=== PATIENT | female | born 1955 | race Caucasian/White ===

== ENCOUNTER 2023-04-10 21:27 | Emergency (ER) | payer MEDICARE, OTHER ==
[~2023-04-10] VITALS: Ht 170.2 cm; Wt 76.4 kg
[~2023-04-10 21:27] MED LIST: ASPI81TA53 PO; ATOR80TA PO; BUME1TAB8 PO; CLOP75TA34 PO; LOP12.5T PO; MELA5CAP PO; PRED10TA PO
[2023-04-10 22:20] LABS: BASOPHILS % (AUTO) 0.2 % (0-1); EOSINOPHILS # (AUTO) 0.1 X10'3 (0-0.9); EOSINOPHILS % (AUTO) 0.9 % (0-6); HEMATOCRIT 31.2 % (35.0-45.0); LYMPHOCYTES # (AUTO) 1.5 X10'3 (1.1-4.8); LYMPHOCYTES % (AUTO) 11.7 % (21-51); MEAN CORPUSCULAR HEMOGLOBIN 26.5 PG (27.0-31.0); MEAN CORPUSCULAR VOLUME 82.8 FL (78-98); MEAN PLATELET VOLUME 7.5 FL (7.4-10.4); MONOCYTES # (AUTO) 0.7 X10'3 (0-0.9); MONOCYTES % (AUTO) 5.6 % (2-12); NEUTROPHILS # (AUTO) 10.4 X10'3 (1.8-7.7); NEUTROPHILS % (AUTO) 81.6 % (42-75); PLATELET COUNT 326 X10'3 (140-440); RED BLOOD COUNT 3.77 X10'6 (4.20-5.60); RED CELL DISTRIBUTION WIDTH 16.2 % (11.5-14.5); WHITE BLOOD COUNT 12.7 X10'3 (4.5-11.0)
[2023-04-10 22:50] LABS: ALANINE AMINOTRANSFERASE 15 U/L (12-78); ALBUMIN 2.8 G/DL (3.4-5.0); ALBUMIN/GLOBULIN RATIO 0.7 (1.1-1.5); ALKALINE PHOSPHATASE 106 IU/L (46-116); ANION GAP 7 (8-16); ASPARTATE AMINO TRANSFERASE 12 U/L (10-37); BILIRUBIN,TOTAL 0.3 MG/DL (0.1-1.0); BLOOD UREA NITROGEN 17 MG/DL (7-18); CALCIUM 9.2 MG/DL (8.5-10.1); CHLORIDE 104 MMOL/L (99-107); GLUCOSE 121 MG/DL (70-104); LIPASE < 50 U/L (73-393); POTASSIUM 4.6 MMOL/L (3.5-5.1); SODIUM 140 MMOL/L (135-145); TOTAL CARBON DIOXIDE 28.6 MMOL/L (24-32); eGFR 55 ML/MIN
[2023-04-10] MEDS ORDERED: orphenadrine citrate 60mg/2ml inj. IM ONE (23:25)
[2023-04-10] MEDS ORDERED: HYDROcodone/acetaminophen 10/325mg tab PO ONE (23:25)
[2023-04-10] MEDS ORDERED: acetaminophen 325mg tablet PO ONE (23:25)
[2023-04-10] MEDS ORDERED: ketorolac trometh inj. 60 MG/2 ML VIAL IM ONE (23:25)
[2023-04-10 23:33] LABS: CLARITY,URINE SLIGHTLY CLOUDY (Clear); COLOR,URINE YELLOW (Yellow); GLUCOSE, URINE NEGATIVE (Neg); KETONES,URINE TRACE mg/dl (Neg); LEUKOCYTE ESTERASE ,URINE NEGATIVE (Neg); NITRITES, URINE NEGATIVE (Neg); OCCULT BLOOD,URINE NEGATIVE (Neg); PROTEIN,URINE NEGATIVE (Neg)
[2023-04-10 23:37] LABS: UA COLLECTION TYPE CLN CATCH MIDSTREAM
[2023-04-10 23:41] LABS: BACTERIA,URINE 2+ /HPF (Neg); MUCUS STRANDS MANY /LPF (Neg); RBC,URINE NONE SEEN /HPF (0-2); SQUAMOUS EPITHELIAL CELL,UR MANY /LPF (FEW); WBC,URINE 0-4 /HPF (0-4)
[2023-04-10] MEDS ORDERED: iohexol 350MG/ML 100ml bottle IV ONE (23:59)
[2023-04-11 05:15] VITALS: TEMP 98.7
[2023-04-11] MEDS ORDERED: esmolol/sodium cl bag 250 ML IV SCH (05:25)
[2023-04-11] MEDS ORDERED: nitroGLYCERIN-Tridil 50MG/D5W 250 ML IV SCH (06:00)
[2023-04-11] MEDS ORDERED: OMEP20CA16 PO (08:50)
[2023-04-11] MEDS ORDERED: ALB0.5UD INH (08:50)
[2023-04-11] MEDS ORDERED: AMLO5TAB16 PO (08:50)
[2023-04-11] MEDS ORDERED: DULO40CA2 PO (08:50)
[2023-04-11] MEDS ORDERED: PANT40TA54 PO (08:50)
[2023-04-11] MEDS ORDERED: APIX5TAB3 PO (08:50)
[2023-04-11] MEDS ORDERED: FLUT12AE21 INH (08:50)
[2023-04-11] MEDS ORDERED: ondansetron/PF 4mg/2ml inj IV ONE (10:45)
[2023-04-11] MEDS ORDERED: morphine 4 MG/ML inj SYRINge IV ONE (10:45)
--- NOTE | 2023-04-11 10:55 | NUR ---
CALLED [facility] FOR UPDATE ON TRANSFER. STILL NO UPDATE, AWAITING THE [facility] SURGEON TO OKAY THE TRANSFER.
[2023-04-11 11:41] LABS: BASOPHILS % (AUTO) 0.2 % (0-1); EOSINOPHILS # (AUTO) 0.1 X10'3 (0-0.9); EOSINOPHILS % (AUTO) 1.1 % (0-6); HEMATOCRIT 30.8 % (35.0-45.0); HEMOGLOBIN 9.9 g/dl (12.0-16.0); LYMPHOCYTES # (AUTO) 1.2 X10'3 (1.1-4.8); LYMPHOCYTES % (AUTO) 12.2 % (21-51); MEAN CORPUSCULAR HEMOGLOBIN 26.9 PG (27.0-31.0); MEAN CORPUSCULAR HGB CONC 32.1 g/dL (33.0-36.5); MEAN CORPUSCULAR VOLUME 83.8 FL (78-98); MEAN PLATELET VOLUME 7.3 FL (7.4-10.4); MONOCYTES # (AUTO) 0.7 X10'3 (0-0.9); MONOCYTES % (AUTO) 7.1 % (2-12); NEUTROPHILS # (AUTO) 7.5 X10'3 (1.8-7.7); NEUTROPHILS % (AUTO) 79.4 % (42-75); PLATELET COUNT 320 X10'3 (140-440); RED BLOOD COUNT 3.67 X10'6 (4.20-5.60); RED CELL DISTRIBUTION WIDTH 15.6 % (11.5-14.5); WHITE BLOOD COUNT 9.5 X10'3 (4.5-11.0)
--- NOTE | 2023-04-11 13:23 | NUR ---
CALLED [facility] FOR UPDATE, NO WORD FROM THE NIGHT VASC SURGEON, TRANSFER C[facility] PAGING DAY SURGEON.
--- NOTE | 2023-04-11 16:42 | NUR ---
DR YE AT BEDSIDE TO ASSESS THE PATIENT AT THIS TIME. DR YANG AT BEDSIDE.
[2023-04-11] MEDS ORDERED: cyclobenzaprine 10mg tablet PO ONE (16:55)
[2023-04-11] MEDS ORDERED: HYDROcodone/acetaminophen 10/325mg tab PO ONE (16:59)
[2023-04-11 18:00] VITALS: BP 107/50; PULSE 63; RESP 19; O2SAT 95
[2023-04-11] MEDS ORDERED: HYDR-3973 PO (18:23)
--- NOTE | 2023-04-11 19:05 | NUR ---
Patient son called to transport pt home. No answer, message left.
== END 2023-04-11 19:32 | disposition home or self-care (01) ==
LOC: ER 21:28
DX: I71.20 Thoracic aortic aneurysm, without rupture, unspecified (principal); M54.59 Other low back pain; Z88.8 Allergy status to other drugs, medicaments and biological substances; Z79.899 Other long term (current) drug therapy
CPT/HCPCS: 36415; 71275; 74174; 74176; 80053; 81001; 83690; 85025; 96365; 96372; 96375; 99291; 99292; J1885; J2270; J2360; J2405; J3490; Q9967; 99285

== ENCOUNTER 2023-12-01 15:33 | Inpatient (IN) | payer MEDICARE, MEDICAID ==
[~2023-12-01] VITALS: Ht 170.2 cm; Wt 91.0 kg
[~2023-12-01 15:33] MED LIST changes: +ALB0.5UD INH; +AMLO5TAB16 PO; +APIX5TAB3 PO; +DULO40CA2 PO; +FLUT12AE21 INH; +OMEP20CA16 PO; +PANT40TA54 PO
[2023-12-01 16:19] LABS: BASOPHILS % (AUTO) 0.2 % (0-1); EOSINOPHILS # (AUTO) 0.2 X10'3 (0-0.9); EOSINOPHILS % (AUTO) 1.2 % (0-6); HEMATOCRIT 37.3 % (35.0-45.0); HEMOGLOBIN 12.2 g/dl (12.0-16.0); LYMPHOCYTES # (AUTO) 2.5 X10'3 (1.1-4.8); LYMPHOCYTES % (AUTO) 18.6 % (21-51); MEAN CORPUSCULAR HEMOGLOBIN 27.2 PG (27.0-31.0); MEAN CORPUSCULAR HGB CONC 32.8 g/dL (33.0-36.5); MEAN CORPUSCULAR VOLUME 82.8 FL (78-98); MONOCYTES # (AUTO) 0.8 X10'3 (0-0.9); NEUTROPHILS # (AUTO) 9.8 X10'3 (1.8-7.7); PLATELET COUNT 287 X10'3 (140-440); RED BLOOD COUNT 4.51 X10'6 (4.20-5.60); RED CELL DISTRIBUTION WIDTH 15.6 % (11.5-14.5); WHITE BLOOD COUNT 13.2 X10'3 (4.5-11.0)
[2023-12-01] MEDS: normal saline 1000ML IV soln IV ONE (16:58)
[2023-12-01 17:01] VITALS: PULSE 73; RESP 12
[2023-12-01] MEDS: ipratropium/albuterol 3ml nebule NEB ONE (17:01)
[2023-12-01 17:06] LABS: ALBUMIN 3.2 G/DL (3.4-5.0); ANION GAP 11 (8-16); BLOOD UREA NITROGEN 17 MG/DL (7-18); BUN/CREATININE RATIO 17.9 (10.0-20.0); CALCIUM 9.1 MG/DL (8.5-10.1); CHLORIDE 105 MMOL/L (99-107); CREATININE 0.95 MG/DL (0.40-0.90); GLUCOSE 133 MG/DL (70-104); POTASSIUM 4.5 MMOL/L (3.5-5.1); PRO BRAIN NATRIURETIC PEPTIDE 352 PG/ML (0-125); SODIUM 140 MMOL/L (135-145); eCRCL 54 ML/MIN; eGFR 58 ML/MIN
[2023-12-01 17:09] VITALS: PULSE 80; RESP 16; O2SAT 96
[2023-12-01] MEDS: acetaminophen 325mg tablet PO STA (17:27)
[2023-12-01] MEDS: cefepime 2g/NS 100ml ADVANTAGE 100 ML IV ONE (17:27)
[2023-12-01] MEDS: dexamethasone sod phosphate 10mg/ml inj IV STA (17:27)
[2023-12-01] MEDS: vancomycin/NS 1 GM ADD-VANTAGE 250 ML X 1 DOSE IV ONE (17:28)
[2023-12-01 17:42] LABS: BILIRUBIN,URINE NEGATIVE (Neg); CLARITY,URINE CLEAR (Clear); COLOR,URINE YELLOW (Yellow); GLUCOSE, URINE NEGATIVE (Neg); KETONES,URINE NEGATIVE (Neg); LEUKOCYTE ESTERASE ,URINE NEGATIVE (Neg); NITRITES, URINE NEGATIVE (Neg); OCCULT BLOOD,URINE NEGATIVE (Neg); PH,URINE 5.5 (4.8-8.0); PROTEIN,URINE NEGATIVE (Neg); UROBILINOGEN,URINE 0.2 E.U/dL (0.2-1.0)
[2023-12-01 17:45] LABS: UA COLLECTION TYPE CLN CATCH MIDSTREAM
[2023-12-01 18:30] LABS: BILIRUBIN,DIRECT 0.1 MG/DL (0-0.3); BILIRUBIN,TOTAL 0.3 MG/DL (0.1-1.0); TOTAL PROTEIN 7.8 G/DL (6.4-8.2)
[2023-12-01 18:31] LABS: ALANINE AMINOTRANSFERASE 17 U/L (12-78); ALBUMIN 3.1 G/DL (3.4-5.0); ALBUMIN/GLOBULIN RATIO 0.7 (1.1-1.5); ALKALINE PHOSPHATASE 140 IU/L (46-116); ASPARTATE AMINO TRANSFERASE 15 U/L (10-37)
[2023-12-01] MEDS ORDERED: mag hydrox/Alum hydrox/simeth 30ml oral suspension PO PRN (21:50)
[2023-12-01] MEDS ORDERED: ondansetron/PF 4mg/2ml inj IV PRN (21:50)
[2023-12-01] MEDS ORDERED: magnesium 4gm in 100ml NS 100 ML IV PRN (21:50)
[2023-12-01] MEDS ORDERED: magnesium hydroxide 30ml (MOM) UD suspension PO PRN (21:50)
[2023-12-01] MEDS ORDERED: magnesium Cl slow-release 64mg tablet PO PRN (21:50)
[2023-12-01] MEDS ORDERED: magnesium 2GM in 50ml NS 50 ML IV PRN (21:50)
[2023-12-01] MEDS ORDERED: potassium Cl 40MEQ/1/2NS 520ml 520 ML IV PRN (21:50)
[2023-12-01] MEDS ORDERED: potassium Cl 20 mEq SR tablet PO PRN ×2 (21:50)
[2023-12-01 22:00] VITALS: BP 96/58; PULSE 88; RESP 20; TEMP 98.8; O2SAT 96
[2023-12-01] MEDS: ipratropium/albuterol 3ml nebule NEB SCH (23:25)
[2023-12-01 23:27] VITALS: PULSE 85; RESP 18; O2SAT 95
[2023-12-01 23:31] VITALS: PULSE 85; RESP 18
[2023-12-01] MEDS: normal saline 1000ml 1,000 ML IV SCH (23:33)
[2023-12-01] MEDS: loperamide 2mg capsule PO ONE (23:33)
[2023-12-01] MEDS ORDERED: HYDROmorphone 1 mg/ml syringe IV PRN (23:45)
[2023-12-01] MEDS: methylPREDNISolone sod succ/PF 40mg inj. IV SCH (23:46)
[2023-12-02] VITALS (13 sets, daily range): BP systolic 81–130; BP diastolic 48–69; PULSE 51–113; RESP 16–20; TEMP 96.8–98.6; O2SAT 91–96
[2023-12-02] MEDS: OXYcodone (OXYCONTIN) Ext Release 15 MG TAB.SR.12H PO ONE (00:21)
[2023-12-02 07:01] LABS: BASOPHILS % (AUTO) 0.1 % (0-1); EOSINOPHILS % (AUTO) 0 % (0-6); HEMATOCRIT 34.5 % (35.0-45.0); HEMOGLOBIN 11.1 g/dl (12.0-16.0); LYMPHOCYTES % (AUTO) 7.4 % (21-51); MEAN CORPUSCULAR HEMOGLOBIN 26.7 PG (27.0-31.0); MEAN CORPUSCULAR HGB CONC 32.1 g/dL (33.0-36.5); MEAN CORPUSCULAR VOLUME 83.3 FL (78-98); MEAN PLATELET VOLUME 8.1 FL (7.4-10.4); MONOCYTES # (AUTO) 0.1 X10'3 (0-0.9); MONOCYTES % (AUTO) 0.6 % (2-12); NEUTROPHILS # (AUTO) 12.9 X10'3 (1.8-7.7); NEUTROPHILS % (AUTO) 91.9 % (42-75); PLATELET COUNT 289 X10'3 (140-440); RED BLOOD COUNT 4.15 X10'6 (4.20-5.60); RED CELL DISTRIBUTION WIDTH 15.8 % (11.5-14.5); WHITE BLOOD COUNT 14.1 X10'3 (4.5-11.0)
[2023-12-02 07:23] LABS: ALANINE AMINOTRANSFERASE 17 U/L (12-78); ALBUMIN 2.9 G/DL (3.4-5.0); ALBUMIN/GLOBULIN RATIO 0.6 (1.1-1.5); ALKALINE PHOSPHATASE 130 IU/L (46-116); ANION GAP 12 (8-16); ASPARTATE AMINO TRANSFERASE 12 U/L (10-37); BILIRUBIN,TOTAL 0.3 MG/DL (0.1-1.0); BLOOD UREA NITROGEN 21 MG/DL (7-18); BUN/CREATININE RATIO 15.4 (10.0-20.0); CALCIUM 8.8 MG/DL (8.5-10.1); CHLORIDE 106 MMOL/L (99-107); CREATININE 1.36 MG/DL (0.40-0.90); GLUCOSE 266 MG/DL (70-104); PHOSPHORUS 3.2 MG/DL (2.3-4.5); POTASSIUM 4.6 MMOL/L (3.5-5.1); SODIUM 141 MMOL/L (135-145); TOTAL PROTEIN 7.7 G/DL (6.4-8.2); eCRCL 38 ML/MIN; eGFR 39 ML/MIN
[2023-12-02] MEDS ORDERED: metoprolol tartrate 50mg tablet PO SCH (08:00)
[2023-12-02] MEDS ORDERED: docusate sod 100mg capsule PO SCH (08:00)
[2023-12-02] MEDS: K and/or MAG REPLACEMENT MC SCH (08:00)
[2023-12-02] MEDS: CefTRIAXone/D5W-Rocephin 1gm 50 ML IV SCH (08:10)
[2023-12-02] MEDS: guaiFENesin ER 600mg tablet PO SCH (08:11)
[2023-12-02] MEDS: azithromycin 250mg tablet PO SCH (08:12)
[2023-12-02] MEDS: aspirin 81mg tab.chew PO SCH (08:12)
[2023-12-02] MEDS: duloxetine 20mg capsule.DR PO SCH (08:12)
[2023-12-02] MEDS: apixaban 5mg tablet PO SCH (08:12)
[2023-12-02] MEDS: amLODIPine 5mg tablet PO SCH (08:15)
[2023-12-02] MEDS: metoprolol tartrate 50mg tablet PO SCH (08:15)
[2023-12-02] MEDS: pantoprazole 40mg Tablet.DR PO SCH (08:16)
[2023-12-02] MEDS: nicotine 21mg patch - 24 hr TD SCH (08:20)
[2023-12-02] MEDS: albuterol 2.5 MG/3 ML nebule NEB PRN (08:43)
[2023-12-02] MEDS ORDERED: HYDR-3964 PO (09:40)
[2023-12-02] MEDS ORDERED: FURO40TA4 PO (09:40)
[2023-12-02] MEDS ORDERED: NICO-687 TOP (09:40)
[2023-12-02] MEDS ORDERED: POTA10CA85 PO (09:40)
[2023-12-02] MEDS ORDERED: KETO15CR2 TOP (09:40)
[2023-12-02] MEDS: HYDROcodone/acetaminophen 5mg/325mg tablet PO PRN (15:11)
[2023-12-02] MEDS: benzonatate 100mg capsule PO PRN (15:11)
[2023-12-02] MEDS: atorvastatin 20mg tablet PO SCH (20:47)
[2023-12-02] MEDS: levoFLOXACIN 500mg tablet PO SCH (20:48)
[2023-12-02] MEDS: furosemide 40mg/4ml inj IV SCH (20:48)
[2023-12-03] VITALS (17 sets, daily range): BP systolic 73–145; BP diastolic 41–49; PULSE 68–98; RESP 16–20; TEMP 96.8–98.4; O2SAT 92–97
[2023-12-03 06:42] LABS: BASOPHILS % (AUTO) 0.1 % (0-1); EOSINOPHILS % (AUTO) 0 % (0-6); HEMATOCRIT 33.7 % (35.0-45.0); HEMOGLOBIN 10.9 g/dl (12.0-16.0); LYMPHOCYTES % (AUTO) 5.6 % (21-51); MEAN CORPUSCULAR HEMOGLOBIN 26.9 PG (27.0-31.0); MEAN CORPUSCULAR HGB CONC 32.4 g/dL (33.0-36.5); MEAN PLATELET VOLUME 8.2 FL (7.4-10.4); MONOCYTES # (AUTO) 0.3 X10'3 (0-0.9); MONOCYTES % (AUTO) 1.7 % (2-12); NEUTROPHILS # (AUTO) 17.1 X10'3 (1.8-7.7); NEUTROPHILS % (AUTO) 92.6 % (42-75); PLATELET COUNT 283 X10'3 (140-440); RED BLOOD COUNT 4.06 X10'6 (4.20-5.60); WHITE BLOOD COUNT 18.5 X10'3 (4.5-11.0)
[2023-12-03 06:58] LABS: ALANINE AMINOTRANSFERASE 17 U/L (12-78); ALBUMIN 2.9 G/DL (3.4-5.0); ALBUMIN/GLOBULIN RATIO 0.6 (1.1-1.5); ALKALINE PHOSPHATASE 112 IU/L (46-116); ANION GAP 12 (8-16); ASPARTATE AMINO TRANSFERASE 10 U/L (10-37); BILIRUBIN,TOTAL 0.3 MG/DL (0.1-1.0); BLOOD UREA NITROGEN 29 MG/DL (7-18); BUN/CREATININE RATIO 26.4 (10.0-20.0); CALCIUM 8.9 MG/DL (8.5-10.1); CHLORIDE 105 MMOL/L (99-107); GLUCOSE 216 MG/DL (70-104); MAGNESIUM 2.2 MG/DL (1.5-2.4); PHOSPHORUS 3.1 MG/DL (2.3-4.5); POTASSIUM 4.7 MMOL/L (3.5-5.1); SODIUM 143 MMOL/L (135-145); TOTAL CARBON DIOXIDE 26.3 MMOL/L (24-32); TOTAL PROTEIN 7.5 G/DL (6.4-8.2); eCRCL 47 ML/MIN; eGFR 49 ML/MIN
[2023-12-03] MEDS: acetaminophen 325mg tablet PO PRN (07:55)
[2023-12-03] MEDS: simethicone 80mg chew tab PO SCH (13:13)
[2023-12-04] VITALS (9 sets, daily range): BP systolic 107–133; BP diastolic 56; PULSE 64–78; RESP 16–20; TEMP 97.1–97.9; O2SAT 90–97
[2023-12-04 07:09] LABS: BASOPHILS % (AUTO) 0.1 % (0-1); EOSINOPHILS % (AUTO) 0 % (0-6); HEMATOCRIT 32.9 % (35.0-45.0); HEMOGLOBIN 10.9 g/dl (12.0-16.0); LYMPHOCYTES # (AUTO) 1.5 X10'3 (1.1-4.8); LYMPHOCYTES % (AUTO) 8.4 % (21-51); MEAN CORPUSCULAR HEMOGLOBIN 27.5 PG (27.0-31.0); MEAN CORPUSCULAR HGB CONC 33.3 g/dL (33.0-36.5); MEAN CORPUSCULAR VOLUME 82.7 FL (78-98); MEAN PLATELET VOLUME 7.9 FL (7.4-10.4); MONOCYTES # (AUTO) 0.7 X10'3 (0-0.9); MONOCYTES % (AUTO) 4.2 % (2-12); NEUTROPHILS # (AUTO) 15.1 X10'3 (1.8-7.7); NEUTROPHILS % (AUTO) 87.3 % (42-75); PLATELET COUNT 289 X10'3 (140-440); RED BLOOD COUNT 3.98 X10'6 (4.20-5.60); RED CELL DISTRIBUTION WIDTH 15.6 % (11.5-14.5); WHITE BLOOD COUNT 17.4 X10'3 (4.5-11.0)
[2023-12-04 07:49] LABS: ALANINE AMINOTRANSFERASE 19 U/L (12-78); ALBUMIN 2.9 G/DL (3.4-5.0); ALBUMIN/GLOBULIN RATIO 0.6 (1.1-1.5); ALKALINE PHOSPHATASE 101 IU/L (46-116); ANION GAP 10 (8-16); ASPARTATE AMINO TRANSFERASE 9 U/L (10-37); BILIRUBIN,TOTAL 0.3 MG/DL (0.1-1.0); BLOOD UREA NITROGEN 37 MG/DL (7-18); BUN/CREATININE RATIO 33.3 (10.0-20.0); CALCIUM 9.3 MG/DL (8.5-10.1); CHLORIDE 103 MMOL/L (99-107); CREATININE 1.11 MG/DL (0.40-0.90); GLUCOSE 184 MG/DL (70-104); MAGNESIUM 2.4 MG/DL (1.5-2.4); PHOSPHORUS 3.6 MG/DL (2.3-4.5); POTASSIUM 4.3 MMOL/L (3.5-5.1); SODIUM 141 MMOL/L (135-145); TOTAL CARBON DIOXIDE 27.9 MMOL/L (24-32); TOTAL PROTEIN 7.4 G/DL (6.4-8.2); eCRCL 47 ML/MIN; eGFR 49 ML/MIN
[2023-12-04] MEDS: levoFLOXACIN 250mg tablet PO SCH (11:44)
[2023-12-04] MEDS ORDERED: LEVO-65 PO (11:49)
[2023-12-04] MEDS ORDERED: SIME80TA73 PO (11:49)
[2023-12-04] MEDS ORDERED: BENZ-111 PO (11:49)
[2023-12-04] MEDS ORDERED: FURO40TA4 PO (11:49)
[2023-12-04] MEDS ORDERED: PRED10TA23 PO (11:50)
== END 2023-12-04 16:28 | disposition home health service (06) | DRG 871 ==
LOC: ER 15:34 → ED HOLD 21:55 → EDBEDREQ 12-02 00:10 → ORTHO 4S 12-02 01:13
PROVIDERS: ADMIT Internal Medicine; ATTEND Internal Medicine
PROC: 05HY33Z Insertion of Infusion Device into Upper Vein, Percutaneous Approach (ICD-10-PCS; principal; 2023-12-01)
DX: A41.9 Sepsis, unspecified organism (principal); J15.9 Unspecified bacterial pneumonia; N17.9 Acute kidney failure, unspecified; J44.1 Chronic obstructive pulmonary disease with (acute) exacerbation; R65.20 Severe sepsis without septic shock; Z20.822 Contact with and (suspected) exposure to COVID-19; I25.10 Atherosclerotic heart disease of native coronary artery without angina pectoris; I10 Essential (primary) hypertension; E78.5 Hyperlipidemia, unspecified; F17.210 Nicotine dependence, cigarettes, uncomplicated; F32.A Depression, unspecified; E66.9 Obesity, unspecified; Z68.31 Body mass index [BMI] 31.0-31.9, adult; Z93.3 Colostomy status; Z79.82 Long term (current) use of aspirin; Z79.899 Other long term (current) drug therapy; Z95.1 Presence of aortocoronary bypass graft; Z90.49 Acquired absence of other specified parts of digestive tract; Z86.79 Personal history of other diseases of the circulatory system; Z88.8 Allergy status to other drugs, medicaments and biological substances; Z85.038 Personal history of other malignant neoplasm of large intestine; Z91.040 Latex allergy status; Z79.02 Long term (current) use of antithrombotics/antiplatelets; I69.334 Monoplegia of upper limb following cerebral infarction affecting left non-dominant side
CPT/HCPCS: 36415; 71045; 74018; 80048; 80053; 80076; 81003; 83605; 83735; 83880; 84100; 84145; 84484; 85025; 87040; 87081; 87502; 87503; 87811; 93005; 94640; 94760; 96361; 96365; 96368; 96375; 97116; 97161; 97530; 99291; A4615; G0378; J0692; J0696; J1100; J1940; J2920; J3370; J7030

== ENCOUNTER 2023-12-25 22:08 | Inpatient (IN) | payer MEDICARE, MEDICAID ==
[~2023-12-25] VITALS: Ht 162.6 cm; Wt 104.5 kg
[~2023-12-25 22:08] MED LIST changes: +BENZ-111 PO; -BUME1TAB8 PO; +FURO40TA4 PO; +HYDR-3964 PO; +KETO15CR2 TOP; +NICO-687 TOP; +POTA10CA85 PO; -PRED10TA PO; +PRED10TA23 PO; +SIME80TA73 PO
[2023-12-25 23:26] LABS: BASOPHILS % (AUTO) 0.5 % (0-1); EOSINOPHILS # (AUTO) 0.1 X10'3 (0-0.9); EOSINOPHILS % (AUTO) 1.1 % (0-6); HEMATOCRIT 30.5 % (35.0-45.0); HEMOGLOBIN 10.1 g/dl (12.0-16.0); LYMPHOCYTES # (AUTO) 1.4 X10'3 (1.1-4.8); LYMPHOCYTES % (AUTO) 14.6 % (21-51); MEAN CORPUSCULAR HEMOGLOBIN 27.4 PG (27.0-31.0); MEAN CORPUSCULAR VOLUME 83.2 FL (78-98); MEAN PLATELET VOLUME 7.9 FL (7.4-10.4); MONOCYTES # (AUTO) 0.5 X10'3 (0-0.9); MONOCYTES % (AUTO) 5.3 % (2-12); NEUTROPHILS # (AUTO) 7.4 X10'3 (1.8-7.7); NEUTROPHILS % (AUTO) 78.5 % (42-75); PLATELET COUNT 223 X10'3 (140-440); RED BLOOD COUNT 3.67 X10'6 (4.20-5.60); RED CELL DISTRIBUTION WIDTH 17.4 % (11.5-14.5); WHITE BLOOD COUNT 9.4 X10'3 (4.5-11.0)
[2023-12-26] VITALS (8 sets, daily range): BP systolic 89–108; BP diastolic 44–81; PULSE 66–88; RESP 12–22; TEMP 97.3–97.9; O2SAT 94–98
[2023-12-26] MEDS: ipratropium/albuterol 3ml nebule NEB ONE (00:12)
[2023-12-26 00:17] LABS: ANION GAP 5 (8-16); BLOOD UREA NITROGEN 15 MG/DL (7-18); BUN/CREATININE RATIO 13.2 (10.0-20.0); CALCIUM 8.7 MG/DL (8.5-10.1); CHLORIDE 102 MMOL/L (99-107); CREATININE 1.14 MG/DL (0.40-0.90); GLUCOSE 329 MG/DL (70-104); POTASSIUM 4.4 MMOL/L (3.5-5.1); PRO BRAIN NATRIURETIC PEPTIDE 724 PG/ML (0-125); SODIUM 137 MMOL/L (135-145); eCRCL 40 ML/MIN; eGFR 47 ML/MIN
[2023-12-26] MEDS: methylPREDNISolone sod succ 125mg/2ml vial IV ONE (00:21)
[2023-12-26] MEDS ORDERED: magnesium 4gm in 100ml NS 100 ML IV PRN (04:40)
[2023-12-26] MEDS ORDERED: mag hydrox/Alum hydrox/simeth 30ml oral suspension PO PRN (04:40)
[2023-12-26] MEDS ORDERED: potassium Cl 20 mEq SR tablet PO PRN ×2 (04:40)
[2023-12-26] MEDS ORDERED: magnesium hydroxide 30ml (MOM) UD suspension PO PRN (04:40)
[2023-12-26] MEDS ORDERED: potassium Cl 40MEQ/1/2NS 520ml 520 ML IV PRN (04:40)
[2023-12-26] MEDS ORDERED: magnesium Cl slow-release 64mg tablet PO PRN (04:40)
[2023-12-26] MEDS ORDERED: ondansetron/PF 4mg/2ml inj IV PRN (04:40)
[2023-12-26] MEDS ORDERED: magnesium 2GM in 50ml NS 50 ML IV PRN (04:40)
[2023-12-26] MEDS ORDERED: ipratropium/albuterol 3ml nebule NEB PRN (05:05)
[2023-12-26] MEDS ORDERED: albuterol 2.5 MG/3 ML nebule NEB PRN (05:05)
[2023-12-26] MEDS: K and/or MAG REPLACEMENT MC SCH (08:00)
[2023-12-26] MEDS: aspirin 81mg tab.chew PO SCH (08:42)
[2023-12-26] MEDS: pantoprazole 40mg Tablet.DR PO SCH (08:42)
[2023-12-26] MEDS: duloxetine 20mg capsule.DR PO SCH (08:43)
[2023-12-26] MEDS: docusate sod 100mg capsule PO SCH (08:43)
[2023-12-26 08:44] LABS: FREE T4 (FREE THYROXINE) 1.09 NG/DL (0.73-1.40); THYROID STIMULATING HORMONE 0.89 ulU/ml (0.34-4.50)
[2023-12-26] MEDS: atorvastatin 20mg tablet PO SCH (08:44)
[2023-12-26] MEDS: apixaban 5mg tablet PO SCH (08:44)
[2023-12-26] MEDS: amLODIPine 5mg tablet PO SCH (08:45)
[2023-12-26] MEDS: predniSONE 20 mg tablet PO SCH (08:45)
[2023-12-26] MEDS: metoprolol tartrate 50mg tablet PO SCH (08:45)
[2023-12-26] MEDS: guaiFENesin ER 600mg tablet PO SCH (08:45)
[2023-12-26] MEDS: nicotine 14mg patch - 24hr TD SCH (08:46)
[2023-12-26] MEDS: azithromycin 250mg tablet PO SCH (08:46)
[2023-12-26] MEDS ORDERED: DEXTROSE 15 GM of carb/4 tabs (each vial/BOTTLE has 4 tablets) PO PRN ×4 (09:05→17:20)
[2023-12-26] MEDS ORDERED: dextrose 50%-water 50ml dispensing syringe IV PRN ×4 (09:05→17:20)
[2023-12-26] MEDS ORDERED: glucagon, human recombinant 1mg kit SUBCUT PRN ×2 (09:05→17:20)
[2023-12-26] MEDS: methylPREDNISolone sod succ 125mg/2ml vial IV SCH (09:27)
[2023-12-26] MEDS: CefTRIAXone/D5W-Rocephin 1gm 50 ML IV SCH (09:48)
[2023-12-26] MEDS: insulin Lispro (HumaLOG) vial - multi-dose SQ SCH ×2 (12:28→17:38)
[2023-12-26] MEDS: nystatin 15 GM powder TP SCH (12:35)
[2023-12-26] MEDS: acetaminophen 325mg tablet PO PRN (13:11)
[2023-12-26] MEDS: insulin glargine (Lantus) pen - multi-dose SQ SCH ×2 (20:35→21:05)
[2023-12-26] MEDS: HYDROcodone/acetaminophen 5mg/325mg tablet PO PRN (21:22)
[2023-12-27] VITALS (10 sets, daily range): BP systolic 90–115; BP diastolic 47–69; PULSE 62–82; RESP 14–19; TEMP 97.3–98.6; O2SAT 93–100
[2023-12-27 00:51] LABS: ALBUMIN 2.3 G/DL (3.4-5.0); ANION GAP 8 (8-16); BLOOD UREA NITROGEN 28 MG/DL (7-18); BUN/CREATININE RATIO 20.3 (10.0-20.0); CALCIUM 9.7 MG/DL (8.5-10.1); CHLORIDE 102 MMOL/L (99-107); CREATININE 1.38 MG/DL (0.40-0.90); POTASSIUM 4.5 MMOL/L (3.5-5.1); SODIUM 138 MMOL/L (135-145); TOTAL CARBON DIOXIDE 27.6 MMOL/L (24-32); eCRCL 33 ML/MIN; eGFR 38 ML/MIN
[2023-12-27 00:57] LABS: GLUCOSE 447 MG/DL (70-104)
[2023-12-27 01:10] LABS: OSMOLALITY 320 MOSM/K (280-300)
[2023-12-27] MEDS ORDERED: dextrose 50%-water 50ml dispensing syringe IV PRN ×3 (01:15→11:35)
[2023-12-27] MEDS: insulin regular, human U-100 3ml vial - multi-dose IV ONE (03:00)
[2023-12-27] MEDS: Insulin Reg/NS 100units/100mL 100 ML IV SCH (03:35)
[2023-12-27] MEDS: insulin Lispro (HumaLOG) vial - multi-dose SQ PRN (04:32)
[2023-12-27] MEDS ORDERED: insulin Lispro (HumaLOG) vial - multi-dose SQ SCH ×2 (05:00→07:00)
[2023-12-27] MEDS: methylPREDNISolone sod succ/PF 40mg inj. IV SCH (07:45)
[2023-12-27] MEDS: azithromycin/NS 500mg/250ml 250 ML IV SCH (08:00)
[2023-12-27] MEDS: pantoprazole 40mg Tablet.DR PO SCH (08:00)
[2023-12-27] MEDS ORDERED: amLODIPine 5mg tablet PO SCH (08:00)
[2023-12-27] MEDS ORDERED: metoprolol tartrate 12.5mg (1/2 tablet) PO SCH (08:00)
[2023-12-27] MEDS ORDERED: non-formulary drug (Duloxetine HCl 1 CAP) PO SCH (08:00)
[2023-12-27] MEDS ORDERED: apixaban 5mg tablet PO SCH (08:00)
[2023-12-27] MEDS ORDERED: aspirin 81mg tab.chew PO SCH (08:30)
[2023-12-27] MEDS: furosemide 40mg tablet PO SCH (08:46)
[2023-12-27] MEDS: clopidogrel 75mg tablet PO SCH (08:47)
[2023-12-27] MEDS: insulin Lispro (HumaLOG) vial - multi-dose SQ SCH ×4 (08:47→19:31)
[2023-12-27 09:03] LABS: BASOPHILS % (AUTO) 0.1 % (0-1); EOSINOPHILS % (AUTO) 0 % (0-6); HEMOGLOBIN 9.6 g/dl (12.0-16.0); LYMPHOCYTES # (AUTO) 1.3 X10'3 (1.1-4.8); LYMPHOCYTES % (AUTO) 7.3 % (21-51); MEAN CORPUSCULAR HGB CONC 31.9 g/dL (33.0-36.5); MEAN CORPUSCULAR VOLUME 84.4 FL (78-98); MEAN PLATELET VOLUME 8.1 FL (7.4-10.4); MONOCYTES # (AUTO) 0.6 X10'3 (0-0.9); MONOCYTES % (AUTO) 3.4 % (2-12); NEUTROPHILS # (AUTO) 15.3 X10'3 (1.8-7.7); NEUTROPHILS % (AUTO) 89.2 % (42-75); PLATELET COUNT 280 X10'3 (140-440); RED BLOOD COUNT 3.56 X10'6 (4.20-5.60); RED CELL DISTRIBUTION WIDTH 16.6 % (11.5-14.5); WHITE BLOOD COUNT 17.1 X10'3 (4.5-11.0)
[2023-12-27 09:38] LABS: ALANINE AMINOTRANSFERASE 16 U/L (12-78); ALBUMIN 2.1 G/DL (3.4-5.0); ALBUMIN/GLOBULIN RATIO 0.4 (1.1-1.5); ALKALINE PHOSPHATASE 85 IU/L (46-116); ANION GAP 12 (8-16); ASPARTATE AMINO TRANSFERASE 10 U/L (10-37); BILIRUBIN,TOTAL 0.2 MG/DL (0.1-1.0); BLOOD UREA NITROGEN 32 MG/DL (7-18); BUN/CREATININE RATIO 30.8 (10.0-20.0); CALCIUM 9.5 MG/DL (8.5-10.1); CHLORIDE 104 MMOL/L (99-107); CHOL/HDL RATIO 2.5 (0.00-4.99); CHOLESTEROL 119 MG/DL (0-200); CREATININE 1.04 MG/DL (0.40-0.90); GLUCOSE 197 MG/DL (70-104); HDL CHOLESTEROL 48 MG/DL (35-60); LDL CHOLESTEROL 60 MG/DL (50-100); MAGNESIUM 2.3 MG/DL (1.5-2.4); PHOSPHORUS 3.5 MG/DL (2.3-4.5); POTASSIUM 4.1 MMOL/L (3.5-5.1); SODIUM 141 MMOL/L (135-145); TOTAL CARBON DIOXIDE 25.4 MMOL/L (24-32); TRIGLYCERIDES 65 MG/DL (20-135); eCRCL 44 ML/MIN; eGFR 53 ML/MIN
[2023-12-27] MEDS ORDERED: DEXTROSE 15 GM of carb/4 tabs (each vial/BOTTLE has 4 tablets) PO PRN ×2 (11:35)
[2023-12-27] MEDS ORDERED: glucagon, human recombinant 1mg kit SUBCUT PRN (11:35)
[2023-12-27] MEDS ORDERED: non-formulary drug (Atorvastatin Calcium* (Lipitor*) 1 TABLET) PO SCH (21:00)
[2023-12-27] MEDS: insulin glargine (Lantus) pen - multi-dose SQ SCH (21:26)
[2023-12-28] VITALS (9 sets, daily range): BP systolic 103–152; BP diastolic 53–71; PULSE 51–71; RESP 11–21; TEMP 97.8–99; O2SAT 92–97
[2023-12-28] MEDS: insulin Lispro (HumaLOG) vial - multi-dose SQ SCH (07:30)
[2023-12-28 07:47] LABS: BASOPHILS % (AUTO) 0.2 % (0-1); EOSINOPHILS % (AUTO) 0 % (0-6); HEMATOCRIT 36.4 % (35.0-45.0); HEMOGLOBIN 11.6 g/dl (12.0-16.0); LYMPHOCYTES # (AUTO) 1.3 X10'3 (1.1-4.8); LYMPHOCYTES % (AUTO) 9.8 % (21-51); MEAN CORPUSCULAR HEMOGLOBIN 26.9 PG (27.0-31.0); MEAN CORPUSCULAR HGB CONC 31.8 g/dL (33.0-36.5); MEAN CORPUSCULAR VOLUME 84.6 FL (78-98); MEAN PLATELET VOLUME 7.9 FL (7.4-10.4); MONOCYTES # (AUTO) 0.3 X10'3 (0-0.9); MONOCYTES % (AUTO) 2.3 % (2-12); NEUTROPHILS # (AUTO) 11.8 X10'3 (1.8-7.7); NEUTROPHILS % (AUTO) 87.7 % (42-75); PLATELET COUNT 308 X10'3 (140-440); RED CELL DISTRIBUTION WIDTH 16.6 % (11.5-14.5); WHITE BLOOD COUNT 13.5 X10'3 (4.5-11.0)
[2023-12-28 08:39] LABS: ALANINE AMINOTRANSFERASE 25 U/L (12-78); ALBUMIN 2.5 G/DL (3.4-5.0); ALBUMIN/GLOBULIN RATIO 0.5 (1.1-1.5); ALKALINE PHOSPHATASE 97 IU/L (46-116); ANION GAP 8 (8-16); ASPARTATE AMINO TRANSFERASE 14 U/L (10-37); BILIRUBIN,TOTAL 0.3 MG/DL (0.1-1.0); BLOOD UREA NITROGEN 28 MG/DL (7-18); BUN/CREATININE RATIO 32.6 (10.0-20.0); CALCIUM 9.5 MG/DL (8.5-10.1); CHLORIDE 103 MMOL/L (99-107); CREATININE 0.86 MG/DL (0.40-0.90); GLUCOSE 213 MG/DL (70-104); MAGNESIUM 2.3 MG/DL (1.5-2.4); PHOSPHORUS 3.9 MG/DL (2.3-4.5); POTASSIUM 4.1 MMOL/L (3.5-5.1); SODIUM 140 MMOL/L (135-145); TOTAL CARBON DIOXIDE 29.1 MMOL/L (24-32); TOTAL PROTEIN 7.9 G/DL (6.4-8.2); eCRCL 53 ML/MIN; eGFR 65 ML/MIN
[2023-12-28] MEDS ORDERED: PRED10TA23 PO (13:13)
[2023-12-28] MEDS ORDERED: LACT1CAP60 PO (13:13)
[2023-12-28] MEDS ORDERED: CEFD300C3 PO (17:47)
[2023-12-29 00:03] VITALS: PULSE 67; RESP 16; O2SAT 91
[2023-12-29 02:00] VITALS: BP 126/73; PULSE 56; RESP 14; TEMP 97.8; O2SAT 97
[2023-12-29 06:00] VITALS: BP 138/73; PULSE 66; RESP 14; TEMP 97.8; O2SAT 99
[2023-12-29 08:00] VITALS: RESP 12; O2SAT 99
[2023-12-29 08:08] LABS: BASOPHILS % (AUTO) 0.2 % (0-1); EOSINOPHILS % (AUTO) 0 % (0-6); HEMATOCRIT 34.7 % (35.0-45.0); HEMOGLOBIN 11.4 g/dl (12.0-16.0); LYMPHOCYTES # (AUTO) 1.2 X10'3 (1.1-4.8); MEAN CORPUSCULAR HEMOGLOBIN 27.1 PG (27.0-31.0); MEAN CORPUSCULAR HGB CONC 32.9 g/dL (33.0-36.5); MEAN CORPUSCULAR VOLUME 82.4 FL (78-98); MEAN PLATELET VOLUME 7.7 FL (7.4-10.4); MONOCYTES # (AUTO) 0.3 X10'3 (0-0.9); MONOCYTES % (AUTO) 2.3 % (2-12); NEUTROPHILS # (AUTO) 9.4 X10'3 (1.8-7.7); NEUTROPHILS % (AUTO) 86.5 % (42-75); PLATELET COUNT 355 X10'3 (140-440); RED BLOOD COUNT 4.21 X10'6 (4.20-5.60); RED CELL DISTRIBUTION WIDTH 16.2 % (11.5-14.5); WHITE BLOOD COUNT 10.9 X10'3 (4.5-11.0)
[2023-12-29 08:09] VITALS: PULSE 57; RESP 16; O2SAT 98
[2023-12-29 08:36] LABS: ALANINE AMINOTRANSFERASE 26 U/L (12-78); ALBUMIN 2.4 G/DL (3.4-5.0); ALBUMIN/GLOBULIN RATIO 0.5 (1.1-1.5); ALKALINE PHOSPHATASE 94 IU/L (46-116); ANION GAP 7 (8-16); ASPARTATE AMINO TRANSFERASE 16 U/L (10-37); BILIRUBIN,TOTAL 0.3 MG/DL (0.1-1.0); BLOOD UREA NITROGEN 27 MG/DL (7-18); BUN/CREATININE RATIO 27.3 (10.0-20.0); CALCIUM 9.1 MG/DL (8.5-10.1); CHLORIDE 103 MMOL/L (99-107); CREATININE 0.99 MG/DL (0.40-0.90); GLUCOSE 207 MG/DL (70-104); MAGNESIUM 2.3 MG/DL (1.5-2.4); PHOSPHORUS 4.1 MG/DL (2.3-4.5); POTASSIUM 4.1 MMOL/L (3.5-5.1); SODIUM 141 MMOL/L (135-145); TOTAL CARBON DIOXIDE 31.1 MMOL/L (24-32); TOTAL PROTEIN 7.4 G/DL (6.4-8.2); eCRCL 46 ML/MIN; eGFR 56 ML/MIN
[2023-12-29 10:00] VITALS: BP 116/72; PULSE 60; RESP 16; TEMP 97.3; O2SAT 99
== END 2023-12-29 15:04 | disposition home health service (06) | DRG 189 ==
LOC: ER 22:09 → ED HOLD 12-26 01:55 → UNDOADMIN 12-26 04:51 → ORTHO 4S 12-26 08:30 → ED HOLD 12-26 08:30 → ORTHO 4S 12-27 03:16 → PCU 3S 12-27 03:16 → UNDODISIN 12-29 13:10
PROVIDERS: ADMIT Internal Medicine Pulmonary Disease; ATTEND Family Medicine
DX: J96.01 Acute respiratory failure with hypoxia (principal); J44.1 Chronic obstructive pulmonary disease with (acute) exacerbation; I25.10 Atherosclerotic heart disease of native coronary artery without angina pectoris; I10 Essential (primary) hypertension; F32.A Depression, unspecified; E78.5 Hyperlipidemia, unspecified; I73.9 Peripheral vascular disease, unspecified; I71.40 Abdominal aortic aneurysm, without rupture, unspecified; I48.91 Unspecified atrial fibrillation; Z20.822 Contact with and (suspected) exposure to COVID-19; Z88.8 Allergy status to other drugs, medicaments and biological substances; Z91.040 Latex allergy status; Z79.82 Long term (current) use of aspirin; Z79.899 Other long term (current) drug therapy; Z79.01 Long term (current) use of anticoagulants; Z95.1 Presence of aortocoronary bypass graft; Z85.038 Personal history of other malignant neoplasm of large intestine; Z93.3 Colostomy status; Z90.49 Acquired absence of other specified parts of digestive tract; I69.334 Monoplegia of upper limb following cerebral infarction affecting left non-dominant side
CPT/HCPCS: 36415; 71045; 80048; 80053; 80061; 82948; 83036; 83735; 83880; 83930; 84100; 84132; 84439; 84443; 84484; 85025; 87081; 87502; 87503; 87811; 93005; 94640; 94760; 96374; 97161; 97530; 99285; A4615; A6213; G0378; J0456; J0696; J1815; J2920; J2930; J7040; J7512

== ENCOUNTER 2024-01-01 14:58 | Emergency (ER) | payer MEDICARE, MEDICAID ==
[~2024-01-01] VITALS: Ht 170.2 cm; Wt 87.0 kg
[~2024-01-01 14:58] MED LIST changes: +CEFD300C3 PO; -CLOP75TA34 PO; +LACT1CAP60 PO; -OMEP20CA16 PO
[2024-01-01 17:11] LABS: BASOPHILS % (AUTO) 0.2 % (0-1); EOSINOPHILS % (AUTO) 0.1 % (0-6); HEMATOCRIT 36.4 % (35.0-45.0); HEMOGLOBIN 11.9 g/dl (12.0-16.0); LYMPHOCYTES # (AUTO) 1.4 X10'3 (1.1-4.8); LYMPHOCYTES % (AUTO) 9.6 % (21-51); MEAN CORPUSCULAR HEMOGLOBIN 27.1 PG (27.0-31.0); MEAN CORPUSCULAR HGB CONC 32.7 g/dL (33.0-36.5); MEAN CORPUSCULAR VOLUME 82.8 FL (78-98); MEAN PLATELET VOLUME 7.5 FL (7.4-10.4); MONOCYTES # (AUTO) 0.5 X10'3 (0-0.9); MONOCYTES % (AUTO) 3.4 % (2-12); NEUTROPHILS % (AUTO) 86.7 % (42-75); PLATELET COUNT 479 X10'3 (140-440); RED BLOOD COUNT 4.39 X10'6 (4.20-5.60); RED CELL DISTRIBUTION WIDTH 16.7 % (11.5-14.5)
[2024-01-01 17:24] LABS: ALANINE AMINOTRANSFERASE 31 U/L (12-78); ALBUMIN/GLOBULIN RATIO 0.7 (1.1-1.5); ALKALINE PHOSPHATASE 123 IU/L (46-116); ANION GAP 8 (8-16); ASPARTATE AMINO TRANSFERASE 10 U/L (10-37); BILIRUBIN,TOTAL 0.3 MG/DL (0.1-1.0); BLOOD UREA NITROGEN 22 MG/DL (7-18); BUN/CREATININE RATIO 18.3 (10.0-20.0); CALCIUM 9.4 MG/DL (8.5-10.1); CHLORIDE 98 MMOL/L (99-107); GLUCOSE 379 MG/DL (70-104); POTASSIUM 4.6 MMOL/L (3.5-5.1); SODIUM 136 MMOL/L (135-145); TOTAL CARBON DIOXIDE 29.6 MMOL/L (24-32); TOTAL PROTEIN 7.5 G/DL (6.4-8.2); eCRCL 43 ML/MIN; eGFR 45 ML/MIN
[2024-01-01 19:30] VITALS: BP 119/79; PULSE 66; RESP 18; TEMP 98.9; O2SAT 94
[2024-01-01] MEDS: insulin regular, human 10 units/0.1 ml syringe SQ ONE ×2 (19:45)
== END 2024-01-01 20:38 | disposition home or self-care (01) ==
LOC: ER 14:59
DX: E11.65 Type 2 diabetes mellitus with hyperglycemia (principal); Z86.73 Personal history of transient ischemic attack (TIA), and cerebral infarction without residual deficits; Z87.891 Personal history of nicotine dependence; Z88.8 Allergy status to other drugs, medicaments and biological substances; Z79.899 Other long term (current) drug therapy; Z79.2 Long term (current) use of antibiotics; Z79.82 Long term (current) use of aspirin
CPT/HCPCS: 36415; 80053; 82948; 85025; 99283; J1815

== ENCOUNTER 2024-03-26 14:12 | Emergency (ER) | payer MEDICARE, MEDICAID ==
[~2024-03-26] VITALS: Ht 170.2 cm; Wt 112.6 kg
[~2024-03-26 14:12] MED LIST changes: -POTA10CA85 PO; +POTA10CA95 PO; -PRED10TA23 PO
[2024-03-26 14:44] LABS: BASOPHILS % (AUTO) 0.3 % (0-1); EOSINOPHILS # (AUTO) 0.1 X10'3 (0-0.9); EOSINOPHILS % (AUTO) 0.6 % (0-6); HEMATOCRIT 33.2 % (35.0-45.0); HEMOGLOBIN 10.5 g/dl (12.0-16.0); LYMPHOCYTES # (AUTO) 1.5 X10'3 (1.1-4.8); LYMPHOCYTES % (AUTO) 13.5 % (21-51); MEAN CORPUSCULAR HEMOGLOBIN 26.9 PG (27.0-31.0); MEAN CORPUSCULAR HGB CONC 31.6 g/dL (33.0-36.5); MEAN CORPUSCULAR VOLUME 85.2 FL (78-98); MEAN PLATELET VOLUME 7.6 FL (7.4-10.4); MONOCYTES # (AUTO) 0.6 X10'3 (0-0.9); MONOCYTES % (AUTO) 5.8 % (2-12); NEUTROPHILS # (AUTO) 8.9 X10'3 (1.8-7.7); NEUTROPHILS % (AUTO) 79.8 % (42-75); PLATELET COUNT 326 X10'3 (140-440); RED CELL DISTRIBUTION WIDTH 16.5 % (11.5-14.5); WHITE BLOOD COUNT 11.2 X10'3 (4.5-11.0)
[2024-03-26 14:55] VITALS: TEMP 98.4
[2024-03-26 15:03] LABS: ALBUMIN 3.2 G/DL (3.4-5.0); ANION GAP 9 (8-16); BLOOD UREA NITROGEN 14 MG/DL (7-18); BUN/CREATININE RATIO 18.2 (10.0-20.0); CALCIUM 9.2 MG/DL (8.5-10.1); CHLORIDE 105 MMOL/L (99-107); CREATININE 0.77 MG/DL (0.40-0.90); GLUCOSE 131 MG/DL (70-104); POTASSIUM 4.1 MMOL/L (3.5-5.1); PRO BRAIN NATRIURETIC PEPTIDE 504 PG/ML (0-125); SODIUM 141 MMOL/L (135-145); TOTAL CARBON DIOXIDE 27.4 MMOL/L (24-32); eCRCL 67 ML/MIN; eGFR 74 ML/MIN
[2024-03-26 17:55] VITALS: BP 112/80; PULSE 78; RESP 17; O2SAT 93
== END 2024-03-26 17:58 | disposition home or self-care (01) ==
LOC: ER 14:13
DX: R07.89 Other chest pain (principal); R05.9 Cough, unspecified; M79.602 Pain in left arm; R06.02 Shortness of breath; M79.89 Other specified soft tissue disorders; G45.9 Transient cerebral ischemic attack, unspecified; J44.9 Chronic obstructive pulmonary disease, unspecified; E11.9 Type 2 diabetes mellitus without complications; Z88.8 Allergy status to other drugs, medicaments and biological substances; Z91.040 Latex allergy status; Z79.899 Other long term (current) drug therapy; Z79.82 Long term (current) use of aspirin; Z79.2 Long term (current) use of antibiotics
CPT/HCPCS: 36415; 71045; 80048; 83880; 84145; 84484; 85025; 93005; 93971; 99285

== ENCOUNTER 2024-06-11 14:10 | Emergency (ER) | payer MEDICARE, MEDICAID ==
[~2024-06-11] VITALS: Ht 170.2 cm; Wt 98.0 kg
[2024-06-11 15:26] LABS: BASOPHILS % (AUTO) 0.3 % (0-1); EOSINOPHILS # (AUTO) 0.1 X10'3 (0-0.9); EOSINOPHILS % (AUTO) 0.9 % (0-6); HEMATOCRIT 37.1 % (35.0-45.0); HEMOGLOBIN 11.8 g/dl (12.0-16.0); LYMPHOCYTES # (AUTO) 1.2 X10'3 (1.1-4.8); LYMPHOCYTES % (AUTO) 10.9 % (21-51); MEAN CORPUSCULAR HEMOGLOBIN 25.6 PG (27.0-31.0); MEAN CORPUSCULAR HGB CONC 31.7 g/dL (33.0-36.5); MEAN CORPUSCULAR VOLUME 80.9 FL (78-98); MEAN PLATELET VOLUME 8.3 FL (7.4-10.4); MONOCYTES # (AUTO) 0.5 X10'3 (0-0.9); MONOCYTES % (AUTO) 4.8 % (2-12); NEUTROPHILS # (AUTO) 9.5 X10'3 (1.8-7.7); NEUTROPHILS % (AUTO) 83.1 % (42-75); PLATELET COUNT 309 X10'3 (140-440); RED BLOOD COUNT 4.59 X10'6 (4.20-5.60); RED CELL DISTRIBUTION WIDTH 16.6 % (11.5-14.5); WHITE BLOOD COUNT 11.4 X10'3 (4.5-11.0)
[2024-06-11 15:44] LABS: ALANINE AMINOTRANSFERASE 12 U/L (12-78); ALBUMIN 3.1 G/DL (3.4-5.0); ALBUMIN/GLOBULIN RATIO 0.7 (1.1-1.5); ALKALINE PHOSPHATASE 113 IU/L (46-116); ANION GAP 7 (8-16); ASPARTATE AMINO TRANSFERASE 13 U/L (10-37); BILIRUBIN,TOTAL 0.5 MG/DL (0.1-1.0); BLOOD UREA NITROGEN 15 MG/DL (7-18); BUN/CREATININE RATIO 16.1 (10.0-20.0); CALCIUM 9.3 MG/DL (8.5-10.1); CHLORIDE 102 MMOL/L (99-107); CREATININE 0.93 MG/DL (0.40-0.90); GLUCOSE 171 MG/DL (70-104); SODIUM 140 MMOL/L (135-145); TOTAL CARBON DIOXIDE 30.9 MMOL/L (24-32); TOTAL PROTEIN 7.6 G/DL (6.4-8.2); eCRCL 55 ML/MIN; eGFR 60 ML/MIN
[2024-06-11 15:51] LABS: PRO BRAIN NATRIURETIC PEPTIDE 340 PG/ML (0-125)
[2024-06-11] MEDS: mag hydrox/Alum hydrox/simeth 30ml oral suspension PO ONE (16:19)
[2024-06-11] MEDS: LIDOcaine 2% Viscous 15ml cup MM PRN (16:21)
[2024-06-11] MEDS ORDERED: OMEP40CA21 PO (17:15)
[2024-06-11] MEDS: HYDROcodone/acetaminophen 10/325mg tab PO ONE (17:36)
[2024-06-11 18:00] VITALS: BP 101/69; PULSE 66; RESP 16; TEMP 98.8; O2SAT 96
== END 2024-06-11 18:24 | disposition home or self-care (01) ==
LOC: ER 14:11
DX: R07.89 Other chest pain (principal); J44.9 Chronic obstructive pulmonary disease, unspecified; E11.9 Type 2 diabetes mellitus without complications; Z88.8 Allergy status to other drugs, medicaments and biological substances; Z91.040 Latex allergy status; Z79.82 Long term (current) use of aspirin; Z79.899 Other long term (current) drug therapy; Z79.2 Long term (current) use of antibiotics; Z86.73 Personal history of transient ischemic attack (TIA), and cerebral infarction without residual deficits
CPT/HCPCS: 36415; 71045; 80053; 83880; 84145; 84484; 85025; 93005; 99285

== ENCOUNTER 2024-07-14 16:43 | Emergency (ER) | payer MEDICARE, MEDICAID ==
[~2024-07-14] VITALS: Ht 170.2 cm; Wt 113.6 kg
[2024-07-14 18:56] LABS: BASOPHILS # (AUTO) 0.1 X10'3 (0-0.2); BASOPHILS % (AUTO) 0.4 % (0-1); EOSINOPHILS # (AUTO) 0.1 X10'3 (0-0.9); EOSINOPHILS % (AUTO) 1.2 % (0-6); HEMOGLOBIN 11.1 g/dl (12.0-16.0); LYMPHOCYTES # (AUTO) 1.8 X10'3 (1.1-4.8); LYMPHOCYTES % (AUTO) 14.7 % (21-51); MEAN CORPUSCULAR HEMOGLOBIN 26.1 PG (27.0-31.0); MEAN CORPUSCULAR HGB CONC 32.5 g/dL (33.0-36.5); MEAN CORPUSCULAR VOLUME 80.2 FL (78-98); MEAN PLATELET VOLUME 7.6 FL (7.4-10.4); MONOCYTES # (AUTO) 0.7 X10'3 (0-0.9); MONOCYTES % (AUTO) 5.9 % (2-12); NEUTROPHILS # (AUTO) 9.6 X10'3 (1.8-7.7); NEUTROPHILS % (AUTO) 77.8 % (42-75); PLATELET COUNT 318 X10'3 (140-440); RED BLOOD COUNT 4.24 X10'6 (4.20-5.60); RED CELL DISTRIBUTION WIDTH 17.4 % (11.5-14.5); WHITE BLOOD COUNT 12.3 X10'3 (4.5-11.0)
[2024-07-14 19:41] LABS: ALBUMIN 3.2 G/DL (3.4-5.0); ANION GAP 3 (8-16); BLOOD UREA NITROGEN 11 MG/DL (7-18); BUN/CREATININE RATIO 11.2 (10.0-20.0); CALCIUM 9.2 MG/DL (8.5-10.1); CHLORIDE 106 MMOL/L (99-107); CREATININE 0.98 MG/DL (0.40-0.90); GLUCOSE 106 MG/DL (70-104); MAGNESIUM 2.2 MG/DL (1.5-2.4); SODIUM 142 MMOL/L (135-145); TOTAL CARBON DIOXIDE 32.6 MMOL/L (24-32); eCRCL 52 ML/MIN; eGFR 56 ML/MIN
[2024-07-14] MEDS: HYDROcodone/acetaminophen 10/325mg tab PO ONE (19:42)
[2024-07-14 19:43] LABS: APTT 25 SECONDS (22-32); PROTHROMBIN TIME 10.4 SECONDS (9.0-12.0)
[2024-07-14] MEDS ORDERED: ACET-3068 PO (20:57)
[2024-07-14 22:18] VITALS: BP 100/60; PULSE 66; RESP 16; TEMP 98.6; O2SAT 98
== END 2024-07-14 22:10 | disposition home or self-care (01) ==
LOC: ER 16:43
DX: M71.22 Synovial cyst of popliteal space [Baker], left knee (principal); I73.9 Peripheral vascular disease, unspecified; J44.9 Chronic obstructive pulmonary disease, unspecified; M25.552 Pain in left hip; Z88.8 Allergy status to other drugs, medicaments and biological substances; Z91.040 Latex allergy status; Z86.73 Personal history of transient ischemic attack (TIA), and cerebral infarction without residual deficits; Z79.01 Long term (current) use of anticoagulants; Z86.718 Personal history of other venous thrombosis and embolism
CPT/HCPCS: 36415; 73502; 80048; 83735; 85025; 85610; 85730; 93922; 93926; 93971; 99285; A4615

== ENCOUNTER 2024-10-03 13:06 | Emergency (ER) | payer MEDICARE, MEDICAID ==
[~2024-10-03] VITALS: Ht 167.6 cm; Wt 100.0 kg
[~2024-10-03 13:06] MED LIST changes: +ATOR-429 PO; -ATOR80TA PO
[2024-10-03 13:11] VITALS: TEMP 97.3
[2024-10-03 13:59] LABS: BASOPHILS % (AUTO) 0.1 % (0-1); EOSINOPHILS # (AUTO) 0.1 X10'3 (0-0.9); EOSINOPHILS % (AUTO) 1.1 % (0-6); HEMATOCRIT 35.6 % (35.0-45.0); HEMOGLOBIN 11.5 g/dl (12.0-16.0); LYMPHOCYTES # (AUTO) 1.1 X10'3 (1.1-4.8); LYMPHOCYTES % (AUTO) 9.1 % (21-51); MEAN CORPUSCULAR HEMOGLOBIN 26.6 PG (27.0-31.0); MEAN CORPUSCULAR HGB CONC 32.4 g/dL (33.0-36.5); MEAN CORPUSCULAR VOLUME 81.9 FL (78-98); MEAN PLATELET VOLUME 7.7 FL (7.4-10.4); MONOCYTES # (AUTO) 0.6 X10'3 (0-0.9); MONOCYTES % (AUTO) 4.8 % (2-12); NEUTROPHILS # (AUTO) 10.3 X10'3 (1.8-7.7); NEUTROPHILS % (AUTO) 84.9 % (42-75); PLATELET COUNT 317 X10'3 (140-440); RED BLOOD COUNT 4.35 X10'6 (4.20-5.60); RED CELL DISTRIBUTION WIDTH 16.7 % (11.5-14.5); WHITE BLOOD COUNT 12.2 X10'3 (4.5-11.0)
[2024-10-03 14:22] LABS: ALANINE AMINOTRANSFERASE 15 U/L (12-78); ALBUMIN/GLOBULIN RATIO 0.7 (1.1-1.5); ALKALINE PHOSPHATASE 108 IU/L (46-116); ANION GAP 6 (8-16); ASPARTATE AMINO TRANSFERASE 13 U/L (10-37); BILIRUBIN,TOTAL 0.5 MG/DL (0.1-1.0); BLOOD UREA NITROGEN 12 MG/DL (7-18); BUN/CREATININE RATIO 13.5 (10.0-20.0); CALCIUM 7.9 MG/DL (8.5-10.1); CHLORIDE 102 MMOL/L (99-107); CREATININE 0.89 MG/DL (0.40-0.90); GLUCOSE 135 MG/DL (70-104); POTASSIUM 3.5 MMOL/L (3.5-5.1); SODIUM 140 MMOL/L (135-145); TOTAL CARBON DIOXIDE 32.2 MMOL/L (24-32); TOTAL PROTEIN 7.4 G/DL (6.4-8.2); eCRCL 55 ML/MIN; eGFR 63 ML/MIN
[2024-10-03 14:29] LABS: PRO BRAIN NATRIURETIC PEPTIDE 313 PG/ML (0-125)
[2024-10-03] MEDS ORDERED: BUDE10.2 INH (17:49)
[2024-10-03] MEDS ORDERED: DOXY100T2 PO (17:49)
[2024-10-03] MEDS: dexamethasone sod phosphate 10mg/ml inj IV STA (17:53)
[2024-10-03] MEDS: dexamethasone 4mg/ml inj IV SCH (18:01)
[2024-10-03 18:16] VITALS: BP 108/68
[2024-10-03 18:18] VITALS: PULSE 76; RESP 16; O2SAT 96
== END 2024-10-03 18:42 | disposition home or self-care (01) ==
LOC: ER 13:08
DX: J04.0 Acute laryngitis (principal); E11.9 Type 2 diabetes mellitus without complications; I10 Essential (primary) hypertension; I25.10 Atherosclerotic heart disease of native coronary artery without angina pectoris; J44.9 Chronic obstructive pulmonary disease, unspecified; Z86.73 Personal history of transient ischemic attack (TIA), and cerebral infarction without residual deficits; Z85.038 Personal history of other malignant neoplasm of large intestine; Z91.040 Latex allergy status; Z88.8 Allergy status to other drugs, medicaments and biological substances; Z95.1 Presence of aortocoronary bypass graft; Z93.3 Colostomy status; Z79.82 Long term (current) use of aspirin; Z20.822 Contact with and (suspected) exposure to COVID-19
CPT/HCPCS: 36415; 71045; 80053; 83880; 84484; 85025; 87502; 87503; 87811; 93005; 96374; 99285; A4615; J1100